=== PATIENT | male | born 1955 ===

== ENCOUNTER 2016-10-08 07:48 | Inpatient (IN) | payer BC ==
[~2016-10-08 07:48] MED LIST: COLACE100 M1 PO; SENNA PLUS TAB1 EAC1 PO; TRIAMCINOLONE A15 G2 TP; TYLENOL WITH C1 EACH PO; ZOCOR10 M1 PO
[2016-10-08 08:43] LABS: URINE APPEARANCE CLEAR; URINE BILIRUBIN NEGATIVE (NEG); URINE BLOOD NEGATIVE (NEG); URINE COLOR DARK YELLOW; URINE GLUCOSE (UA) NEGATIVE (NEG); URINE KETONE NEGATIVE (NEG); URINE LEUKOCYTE ESTERASE NEGATIVE (NEG); URINE NITRITE NEGATIVE (NEG); URINE PROTEIN NEGATIVE (NEG)
[2016-10-09 05:30] LABS: HCT-HEMATOCRIT 35.6 % (36.0-53.5); HGB-HEMOGLOBIN 11.9 gm/dl (13.5-17.0); IMMATURE GRANULOCYTES ABSOLUTE 0.02 tho/cmm (0-0.03); IMMATURE GRANULOCYTES PERCENT 0.2 % (0-0.3); LYMPH % 9.4 % (20-45); LYMPH ABSOLUTE COUNT 1.2 tho/cmm (0.8-4.5); MCH (MEAN CORPUSCULAR HGB) 29.6 pg (28.0-32.0); MCHC MEAN CORPUSCULAR HGB CONC 33.4 % (32.0-36.0); MCV (MEAN CELL VOLUME) 88.6 fl (82.0-96.0); MEAN PLATELET VOLUME 11.6 cmc (9.4-12.4); MONO % 6.5 % (0-12); MONOCYTE ABSOLUTE COUNT 0.8 tho/cmm (0.0-1.2); NEUTROPHIL ABSOLUTE COUNT 10.8 tho/cmm (1.6-8.0); NEUTROPHIL-AUTOMATED 10.8 tho/cmm (1.6-8.0); NEUTROPHILS % 83.9 % (40-80); PLATELET COUNT 158 tho/cmm (150-450); RED BLOOD COUNT 4.02 mil/cmm (4.40-5.70); RED CELL DISTRIBUTION WIDTH 12.5 % (12.4-16.4); WHITE BLOOD COUNT 12.9 tho/cmm (4.0-10.0)
[2016-10-10] MEDS ORDERED: ASPIRIN325 M3 PO (09:39)
[2016-10-10] MEDS ORDERED: ROXICODONE5 M2 PO (09:40)
[2016-10-10] MEDS ORDERED: MOBIC7.5 M2 PO (09:40)
== END 2016-10-10 13:00 | DRG 470 ==
LOC: EMR2 07:48 → SHSB 09:17 → ORE 10:14 → PACU 12:32 → 5EA 13:25
PROVIDERS: ADMIT Orthopaedic Surgery Orthopaedic Surgery of the Spine
PROC: 0SRC0JZ Replacement of Right Knee Joint with Synthetic Substitute, Open Approach (ICD-10-PCS; principal; 2016-10-08)
DX: M17.11 Unilateral primary osteoarthritis, right knee (principal); E78.5 Hyperlipidemia, unspecified; R09.02 Hypoxemia
CPT/HCPCS: C1713; C9290; J0690; J1170; J1885; J2270; J3010; J7030